=== PATIENT | male | born 1955 | race Caucasian/White ===

== ENCOUNTER → 2016-11-07 | Day surgery (SDC) | payer MEDICARE, OTHER ==
[~2016-11-07] MED LIST: ALLOPURINOL300 MG PO; CATAFLAM50 MG PO; CIPRO PO; COLCRYS0.6 M2 PO; CRESTOR PO; FLAGYL PO; FLEXERIL10 MG PO; GABAPENTIN300 M2 PO; GLYBURIDE2.5 MG PO; LIPITOR40 MG PO; LOSARTAN POTASS25 MG PO; METFORMIN PO; MICRO-K PO; MOBIC PO; NORCO1 TAB 10/3 PO; NORVASC10 MG PO; PERCOCET 7.5-31 EACH PO; PHENERGAN25 MG PO; TOPROL XL PO; TRAMADOL HCL50 M1 PO; VICODIN 5/1 TAB 5/50 PO; VICODIN 5/500 T1 TAB PO
--- NOTE | ~2016-11-07 | OR ---
Unit #: [id number] #: [id number] Patient: YAMILET PYLE SR [id number] [address] [address] [id number] MR#: [id number] NAME: YAMILET PYLE SR ROOM: Date of Procedure: 11/07/2016 Admission Date: 11/07/2016 Surgeon: Kamron Bay M.D. : 1955 Attending Physician: Kamron Bay M.D. Primary Care Physician: Joyce Bird M.D. [facility] CENTER OPERATIVE NOTE PROCEDURE PERFORMED Lumbar epidural steroid injection under x-ray guided needle placement with provider administered conscious sedation. PREOPERATIVE DIAGNOSES 1. Acute lumbar radiculitis. 2. Spinal stenosis, lumbosacral spine. 3. Degenerative joint disease, lumbosacral spine. 4. Degenerative disk disease, lumbosacral spine. INDICATIONS FOR PROCEDURE The patient presents today with a longstanding history of chronic lumbar radicular pain secondary to his underlying degenerative processes. He is generally fairly well managed medically with ongoing continuous conservative measures, however, he does on occasion have exacerbations, which to date have broken through his conservative measures and only been successfully treated with interventional pain management procedures. He presents today having just such an exacerbation. After discussing risks and benefits of proceeding today with lumbar approach epidural steroid injection and an offer to return to this clinic as early as 02/13/2017, the patient agreed this would be the appropriate course of action. DESCRIPTION OF PROCEDURE He was then taken to the operating room, where he was prepped and draped in a sterile manner. Standard monitors were applied. He was sedated initially with 2 mg of IV Versed and required additional 2 mg of IV Versed throughout the duration of the procedure. Lumbar epidural space was accessed at L3-L4 level using loss of resistance technique and x-ray guidance. Needle placement was confirmed with the injection of 2 mL of Omnipaque. There was good superior and inferior flow at this L3-L4 needle placement level. Following successful needle placement, the patient received an injectate containing 4 mL of normal saline and 80 mg of methylprednisolone. He tolerated this procedure well. He was discharged home with followup instructions, which include return dates as described above. Dictated by... KamronNneka Clayton/kan TD: 11/08/2016 02:52 Unit #: [id number] #: [id number] Patient: YAMILET PYLE SR JOB #: [id number] [facility] OPERATIVE NOTE X Adryan Bay MD PROCEDURE OPERATIVE NOTE
== END | disposition home or self-care (01) ==
LOC: CCSC 09:56
DX: G89.29 Other chronic pain (principal); M51.17 Intervertebral disc disorders with radiculopathy, lumbosacral region; M48.07 Spinal stenosis, lumbosacral region; Z88.8 Allergy status to other drugs, medicaments and biological substances; Z90.12 Acquired absence of left breast and nipple; Z98.890 Other specified postprocedural states
CPT/HCPCS: 82947; J1040; J2250